=== PATIENT | male | born 1980 | race Caucasian/White ===

== ENCOUNTER 2017-09-22 14:11 | Emergency (ER) | payer OTHER ==
[~2017-09-22] VITALS: Ht 172.7 cm; Wt 72.0 kg
[2017-09-22] MEDS ORDERED: AMOX250C4 PO (14:24)
[2017-09-22] MEDS ORDERED: MDI IH (14:24)
[2017-09-22] MEDS ORDERED: 0.9% SODIUM CHLORIDE 5 ML NEB SOLUTION NEB ONE (14:38)
[2017-09-22] MEDS ORDERED: IPRATROPIUM BROMIDE 0.5 MG/2.5 ML NEB SOLUTION NEB ONE (14:45)
[2017-09-22] MEDS ORDERED: ALBUTEROL SULFATE 5 MG/ML 20 ML NEB SOLN [BULK] NEB ONE (14:45)
[2017-09-22] MEDS ORDERED: ALBUTEROL SULFATE HFA 90 MCG/PUFF 8 GM INHALER IH ONE (15:45)
[2017-09-22 15:55] VITALS: BP 142/75
== END 2017-09-22 16:27 | disposition home or self-care (01) ==
LOC: EMS 14:13
DX: J45.909 Unspecified asthma, uncomplicated (principal); Z88.2 Allergy status to sulfonamides; Z88.8 Allergy status to other drugs, medicaments and biological substances
CPT/HCPCS: 94644; 99285; J7611; J3535